=== PATIENT | female | born 1970 | race Hispanic/Latino ===

== ENCOUNTER 2022-06-25 15:23 | Emergency (ER) | payer OTHER ==
[~2022-06-25] VITALS: Ht 167.6 cm; Wt 72.6 kg
[2022-06-25] MEDS ORDERED: KETOROLAC TROMETHAMINE 30 MG/ML VIAL ONE (15:31)
[2022-06-25] MEDS ORDERED: ONDANSETRON HCL INJ 2MG/ML 2ML 2 MG/ML VIAL ONE (15:31)
[2022-06-25] MEDS ORDERED: SODIUM CHLORIDE 0.9% 1000ML 1,000 ML ONE (15:31)
[2022-06-25] MEDS ORDERED: FAMOTIDINE 20 MG/2 ML VIAL IV ONE ×2 (15:32→15:45)
[2022-06-25] MEDS ORDERED: SODIUM CHLORIDE 0.9% 1000ML 1,000 ML IV STA (15:41)
[2022-06-25] MEDS ORDERED: KETOROLAC TROMETHAMINE 30 MG/ML VIAL IV ONE (15:45)
[2022-06-25] MEDS ORDERED: ONDANSETRON HCL INJ 2MG/ML 2ML 2 MG/ML VIAL IV ONE (15:45)
[2022-06-25] MEDS ORDERED: IOPAMIDOL 370 MG/ML 100 ML INFUS..BTL INJ ONE (17:35)
[2022-06-25] MEDS ORDERED: CEFTRIAXONE 1 GM VIAL ONE (17:53)
[2022-06-25] MEDS ORDERED: CIPROFLOXACIN500 MG PO (18:08)
[2022-06-25] MEDS ORDERED: METRONIDAZOLE500 MG PO (18:08)
[2022-06-25] MEDS ORDERED: ONDANSETRON ODT4 MG PO (18:08)
[2022-06-25] MEDS ORDERED: ACETAMINOPHEN-1 EAC4 PO (18:08)
== END 2022-06-25 18:19 | disposition home or self-care (01) ==
LOC: FSED 15:30
DX: R10.32 Left lower quadrant pain (principal); R10.814 Left lower quadrant abdominal tenderness; K57.32 Diverticulitis of large intestine without perforation or abscess without bleeding
CPT/HCPCS: 74177; 76830; 76856; 81003; 81025; 85025; 99284; J0696; J1885; J2405; J7030; Q9967